=== PATIENT | female | born 1975 | race Caucasian/White ===

== ENCOUNTER → 2024-12-04 16:16 | Outpatient (REF) | payer BC, SELFPAY | LOC: HWWDC 16:16 | PROVIDERS: ATTENDING PHYSICIAN Nurse Practitioner Adult Health | DX: Z12.31 Encounter for screening mammogram for malignant neoplasm of breast (principal) | CPT/HCPCS: 77063; 77067 ==

== ENCOUNTER → 2025-08-16 14:14 | Outpatient (REF) | payer BC, SELFPAY | LOC: DHSLP 14:14 | PROVIDERS: ATTENDING PHYSICIAN Nurse Practitioner Adult Health | DX: G47.33 Obstructive sleep apnea (adult) (pediatric) (principal); R06.83 Snoring | CPT/HCPCS: 95806 ==